=== PATIENT | male | born 1970 | race Caucasian/White ===

== ENCOUNTER 2018-02-12 10:49 | Emergency (ER) | payer SELFPAY ==
[~2018-02-12] VITALS: Ht 182.9 cm; Wt 95.2 kg
[~2018-02-12 10:49] MED LIST: ACYC200 PO; Benadryl 50 mg50 MG PO; CODACE30 PO; CYCL10 PO; Ciloxan5 ML RIGHTEYE; Norco 10-325 T1 EACH PO; Norco 5-325 Ta1 EACH PO; Ultram50 MG PO; Zithromax250 MG PO
== END 2018-02-12 11:00 | disposition left against medical advice (07) ==
LOC: ER 10:49
DX: M25.512 Pain in left shoulder (principal); Z88.6 Allergy status to analgesic agent

== ENCOUNTER → 2018-02-22 | Outpatient (CLI) | payer OTHER ==
[2018-02-22 16:27] LABS: Anion Gap 8 mmol/L (6-16); Blood Urea Nitrogen 25 mg/dL (8-24); CO2, Blood 27 mmol/L (21-32); Calcium, Blood 8.8 mg/dL (8.5-10.1); Chloride, Blood 103 mmol/L (98-108); Creatinine, Blood 1.25 mg/dL (0.60-1.20); Glomerular Filtration Rate >60 (60-); Glucose, Blood 95 mg/dL (70-99); Potassium, Blood 3.8 mmol/L (3.5-5.5); Sodium, Blood 138 mmol/L (136-145)
== END ==
LOC: LAB EV 16:12 → LAB SHORT 16:12
PROVIDERS: Family Medicine
DX: R94.4 Abnormal results of kidney function studies (principal)
CPT/HCPCS: 80048

== ENCOUNTER 2020-02-17 04:39 | Emergency (ER) | payer OTHER ==
[~2020-02-17] VITALS: Ht 188 cm; Wt 102.1 kg
== END 2020-02-17 05:57 | disposition home or self-care (01) ==
LOC: ER 04:39
DX: G43.909 Migraine, unspecified, not intractable, without status migrainosus (principal); Z88.6 Allergy status to analgesic agent
CPT/HCPCS: 96372; 99283-25; J1200; J2270; J2550

== ENCOUNTER 2020-03-21 11:24 | Emergency (ER) | payer OTHER ==
[~2020-03-21] VITALS: Ht 190.5 cm; Wt 120.2 kg
[2020-03-21] MEDS ORDERED: AMLO10 PO (11:44)
[2020-03-21] MEDS ORDERED: BUTALB-ASPIRIN1 EAC1 PO (11:52)
[2020-03-21] MEDS ORDERED: SERT100 PO (11:53)
[2020-03-21] MEDS ORDERED: ATOR10 PO (11:53)
[2020-03-21 12:03] LABS: BASOPHILS ABSOLUTE AUTO 0.03 K/mm3 (0.00-0.23); BASOPHILS PERCENT AUTO 0 % (0-2); EOSINOPHILS ABSOLUTE AUTO 0.02 K/mm3 (0.00-0.68); EOSINOPHILS PERCENT AUTO 0 % (0-6); Hematocrit 47.3 % (37.0-53.0); Hemoglobin 16.2 g/dL (13.5-17.5); IMMATURE GRAN ABSOLUTE AUTO 0.01 K/mm3 (0.00-0.10); IMMATURE GRAN PERCENT AUTO 0 % (0-1); LYMPHOCYTES ABSOLUTE AUTO 3.06 K/mm3 (0.84-5.20); LYMPHOCYTES PERCENT AUTO 35 % (21-46); MONOCYTES ABSOLUTE AUTO 0.76 K/mm3 (0.16-1.47); MONOCYTES PERCENT AUTO 9 % (4-13); Mean Corpuscular HGB 29.9 pg (26.0-34.0); Mean Corpuscular HGB Conc 34.2 g/dL (31.5-36.5); Mean Corpuscular Volume 87 fL (80-100); Mean Platelet Volume 9.8 fL (9.1-12.4); NEUTROPHILS ABSOLUTE AUTO 4.91 K/mm3 (1.96-9.15); NEUTROPHILS PERCENT AUTO 56 % (41-73); Platelet Count 236 K/mm3 (150-400); RDW Coefficient Variation 12.6 % (11.7-14.2); RDW Standard Deviation 40.2 fL (35.1-46.3); Red Blood Cell Count 5.41 M/mm3 (4.30-5.90); White Blood Cell Count 8.79 K/mm3 (4.00-11.30)
[2020-03-21 12:15] LABS: Alanine Aminotransfer (ALT/SGP 37 U/L (12-78); Albumin, Blood 3.9 g/dL (3.4-5.0); Albumin/Globulin Ratio 1.1 (0.8-1.8); Alk Phos 83 U/L (50-136); Anion Gap 6 mmol/L (6-16); Aspartate Aminotrans (AST/SGOT 16 U/L (12-37); Bilirubin, Total 0.5 mg/dL (0.1-1.0); Blood Urea Nitrogen 27 mg/dL (8-24); CO2, Blood 27 mmol/L (21-32); Calcium, Blood 8.8 mg/dL (8.5-10.1); Chloride, Blood 104 mmol/L (98-108); Creatinine, Blood 1.08 mg/dL (0.60-1.20); Globulin, Blood 3.7 g/dL (2.2-4.0); Glomerular Filtration Rate >60 (60-); Glucose, Blood 92 mg/dL (70-99); Potassium, Blood 3.3 mmol/L (3.5-5.5); Sodium, Blood 137 mmol/L (136-145); Total Protein, Blood 7.6 g/dL (6.4-8.2); Troponin I <0.015 ng/mL (0.000-0.040)
== END 2020-03-21 13:47 | disposition home or self-care (01) ==
LOC: ER 11:24
PROVIDERS: Physician Assistant
DX: R07.9 Chest pain, unspecified (principal); Z88.6 Allergy status to analgesic agent; Z79.899 Other long term (current) drug therapy; F32.9 Major depressive disorder, single episode, unspecified; F43.10 Post-traumatic stress disorder, unspecified
CPT/HCPCS: 36415; 71046; 80053; 84484; 85025; 85379; 93005; 93010; 99285-25

== ENCOUNTER 2021-03-10 15:59 | Emergency (ER) | payer OTHER ==
[~2021-03-10] VITALS: Ht 188 cm; Wt 104.3 kg
[~2021-03-10 15:59] MED LIST changes: +AMLO10 PO; +ATOR10 PO; +BUTALB-ASPIRIN1 EAC1 PO; +SERT100 PO
[2021-03-10] MEDS ORDERED: TRAM50 PO (16:17)
[2021-03-10] MEDS ORDERED: Veetids 500500 MG PO (16:17)
== END 2021-03-10 16:23 | disposition home or self-care (01) ==
LOC: ER 15:59
DX: K02.9 Dental caries, unspecified (principal); Z88.6 Allergy status to analgesic agent; Z79.899 Other long term (current) drug therapy
CPT/HCPCS: 99282

== ENCOUNTER 2021-04-27 19:28 | Emergency (ER) | payer OTHER ==
[~2021-04-27] VITALS: Ht 188 cm; Wt 102.1 kg
[~2021-04-27 19:28] MED LIST changes: +TRAM50 PO; +Veetids 500500 MG PO
== END 2021-04-27 20:48 | disposition home or self-care (01) ==
LOC: ER 19:28
DX: G43.709 Chronic migraine without aura, not intractable, without status migrainosus (principal); Z88.6 Allergy status to analgesic agent; Z79.899 Other long term (current) drug therapy
CPT/HCPCS: 96374; 96375; 99283-25; J1200; J2765; J3010

== ENCOUNTER 2021-05-13 10:25 | Emergency (ER) | payer OTHER | END 2021-05-13 11:24 | disposition left against medical advice (07) | LOC: ER 10:25 | DX: Z53.21 Procedure and treatment not carried out due to patient leaving prior to being seen by health care provider (principal) ==